=== PATIENT | female | born 1965 | race Caucasian/White ===

== ENCOUNTER 2019-09-03 05:52 | Observation (INO) ==
[2019-09-03] MEDS ORDERED: 0.9 % Sodium Chloride 1,000 ML IVC ONE (06:28)
[2019-09-03] MEDS ORDERED: *HR* FentaNYL (PF) 100 MCG/2 ML VIAL IVP ONE (06:28)
[2019-09-03] MEDS ORDERED: Ondansetron 4 MG/2 ML VIAL IVP ONE ×2 (06:28→16:19)
[2019-09-03 06:38] LABS: Basophils # 0.1 K/mcL (0.0-0.2); Basophils % 0.6 %; Eosinophils # 0.1 K/mcL (0.0-0.6); Eosinophils % 1.2 %; Hematocrit 44.4 % (35.3-44.9); Immature Granulocytes % 0.3 % (0-4); Lymphocytes # 2.5 K/mcL (0.6-4.6); Lymphocytes % 25.2 %; Mean Corpuscular HGB Conc 33.8 g/dL (31.6-35.5); Mean Corpuscular Hemoglobin 30.7 pg (28.0-33.3); Mean Corpuscular Volume 90.8 fL (83.0-100.0); Mean Platelet Volume 11.2 fL (9.4-12.4); Monocytes # 0.7 K/mcL (0.0-1.3); Monocytes % 6.8 %; Neutrophils # 6.5 K/mcL (1.6-8.9); Platelet Count 203 K/mcL (140-400); Red Blood Count 4.89 M/mcL (3.82-4.97); Red Cell Distribution Width 12.8 % (11.5-14.5); Segmented Neutrophils % 65.9 %; White Blood Count 9.9 K/mcL (4.3-11.1)
[2019-09-03 06:56] LABS: Bilirubin,Urine Negative (Negative); Blood,Urine Negative (Negative); Clarity,Urine Clear (Clear); Color,Urine Yellow (Yellow); Glucose,Urine (UA) Normal (Normal); Ketones,Urine Negative (Negative); Leukocyte Esterase,Urine Small (Negative); Nitrite,Urine Negative (Negative); PH,Urine 5.5 pH Units (5.0-8.0); Protein,Urine Negative (Neg-Trace); Specific Gravity,Urine 1.019 (1.010-1.025); Urobilinogen,Urine Normal (Normal)
[2019-09-03 06:58] LABS: Alanine Aminotransferase 20 Units/L (7-52); Albumin 4.1 g/dL (3.5-5.7); Albumin/Globulin Ratio 1.4 (1.1-2.2); Alkaline Phosphatase 82 Units/L (34-104); Aspartate Amino Transferase 16 Units/L (13-39); BUN/Creatinine Ratio 24 (6-26); Bilirubin,Total 0.6 mg/dL (0.3-1.0); Blood Urea Nitrogen 17 mg/dL (6-20); Calcium 9.2 mg/dL (8.6-10.3); Carbon Dioxide 26 mEq/L (23-29); Chloride 100 mEq/L (98-107); Globulin 2.9 g/dL (2.4-3.5); Glucose 243 mg/dL (70-105); Lipase 15 Units/L (11-82); Osmolality,Calculated 292 (280-300); Potassium 4.5 mEq/L (3.5-5.1); Sodium 136 mEq/L (136-145); eGFR For African Americans > 60 (> 60); eGFR For Non-African Americans > 60 (> 60)
[2019-09-03 07:00] LABS: Bacteria,Urine None Seen per hpf (None-Few); Hyaline Casts,Urine None Seen per lpf (None-Few); RBC,Urine 0-3 per hpf (0-3); Squamous Epithelial Cell,Urine Many per lpf (None-Few); WBC,Urine 0-3 per hpf (0-3)
[2019-09-03] MEDS ORDERED: Piperacillin/Tazobactam 3.375 GM in 0.9 % Sodium Chloride Mini Bag 100 ML IVPB ONE (08:55)
[2019-09-03] MEDS ORDERED: Ipratropium/Albuterol Neb 3 ML IH ONE (09:04)
[2019-09-03] MEDS ORDERED: Bupivacaine/EPI 1:200k 0.5%PF 30 ML VIAL ONE (16:15)
[2019-09-03] MEDS ORDERED: Albuterol 2.5 MG/3 ML NEBULIZER IH ONE (16:16)
[2019-09-03] MEDS ORDERED: Albuterol 2.5 MG/3 ML NEBULIZER ONE (16:18)
[2019-09-03] MEDS ORDERED: *HR* Meperidine 25 MG/ML SYRINGE IVP PRN (16:19)
[2019-09-03] MEDS ORDERED: Albuterol 2.5 MG/3 ML NEBULIZER IH PRN ×2 (16:19→18:37)
[2019-09-03] MEDS ORDERED: *HR* FentaNYL (PF) 100 MCG/2 ML VIAL IVP PRN (16:19)
[2019-09-03] MEDS ORDERED: Neostigmine Methylsulfate 3 MG/3 ML SYRINGE ONE (16:23)
[2019-09-03] MEDS ORDERED: Dexamethasone 4 MG/ML VIAL ONE (16:23)
[2019-09-03] MEDS ORDERED: *HR* Midazolam HCl 2 MG/2 ML VIAL ONE (16:23)
[2019-09-03] MEDS ORDERED: *HR* Rocuronium Bromide 50 MG/5 ML VIAL ONE (16:23)
[2019-09-03] MEDS ORDERED: *HR* Succinylcholine 200 MG/10 ML VIAL IVP ONE (16:23)
[2019-09-03] MEDS ORDERED: Lidocaine -MPF 2% 2 ML VIAL ONE ×2 (16:23→16:25)
[2019-09-03] MEDS ORDERED: *HR* Propofol 200 MG/20 ML VIAL IVP ONE (16:24)
[2019-09-03] MEDS ORDERED: Piperacillin/Tazobactam 3.375 GM in 0.9 % Sodium Chloride Mini Bag 100 ML IVPB SCH (16:30)
[2019-09-03] MEDS ORDERED: Lidocaine HCL 4 ML Topical Solution (Laryng-O-Jet Kit Sterile Pak) TP ONE (16:31)
[2019-09-03] MEDS ORDERED: Acetaminophen IV 1,000 MG/100 ML INFUS..BTL ONE (17:01)
[2019-09-03] MEDS ORDERED: *HR* OxyCODONE/APAP 5/325 TABLET PO PRN (18:37)
[2019-09-03] MEDS ORDERED: Diclofenac Sodium (DR) 50 MG TABLET.DR PO PRN (18:37)
[2019-09-03] MEDS ORDERED: Ondansetron 4 MG/2 ML VIAL IVP PRN (18:37)
[2019-09-03] MEDS: Ketorolac 15 MG/ML VIAL IVP SCH (19:27)
[2019-09-03] MEDS: Piperacillin/Tazobactam 3.375 GM in 0.9 % Sodium Chloride Mini Bag 100 ML IVPB SCH (23:31)
[2019-09-04] MEDS: Ketorolac 15 MG/ML VIAL IVP SCH ×2 (02:51→08:44)
[2019-09-04] MEDS: Piperacillin/Tazobactam 3.375 GM in 0.9 % Sodium Chloride Mini Bag 100 ML IVPB SCH (07:18)
[2019-09-04] MEDS ORDERED: Lisinopril-HCTZ 20-12.5mg TABLET PO SCH (09:00)
[2019-09-04 11:19] VITALS: BP 138/80
== END 2019-09-04 14:04 | disposition home or self-care (01) ==
LOC: 3BNU 05:52 → EMEROOARM 05:52 → 3BNU 10:01
PROVIDERS: ADMIT Internal Medicine; ATTEND Internal Medicine